=== PATIENT | male | born 1990 | race Caucasian/White ===

== ENCOUNTER 2017-02-24 23:52 | Emergency (ER) | payer BC, OTHER ==
[~2017-02-24] VITALS: Ht 185.4 cm; Wt 58.1 kg
[2017-02-24 23:54] VITALS: BP 123/81
[2017-02-25] MEDS ORDERED: IBUPROFEN 800 MG TAB PO ONE ×2 (01:08→01:45)
== END 2017-02-25 01:43 | disposition home or self-care (01) ==
LOC: ER 23:52
DX: S89.91XA Unspecified injury of right lower leg, initial encounter (principal); S69.92XA Unspecified injury of left wrist, hand and finger(s), initial encounter; Z88.0 Allergy status to penicillin; Z88.1 Allergy status to other antibiotic agents; F17.210 Nicotine dependence, cigarettes, uncomplicated; W20.8XXA Other cause of strike by thrown, projected or falling object, initial encounter; Y93.89 Activity, other specified; Y99.8 Other external cause status; Y92.89 Other specified places as the place of occurrence of the external cause
CPT/HCPCS: 29130; 73130; 73562